=== PATIENT | male | born 1950 | race Caucasian/White ===

== ENCOUNTER 2019-10-11 10:15 | Outpatient (CLI) | payer MEDICARE, SELFPAY | END 2019-10-11 10:16 | disposition home or self-care (01) | PROVIDERS: PCP Internal Medicine; Visit Provider Internal Medicine Gastroenterology | DX: Z01.818 Encounter for other preprocedural examination (principal); Z11.59 Encounter for screening for other viral diseases | CPT/HCPCS: 87635; U0003 ==

== ENCOUNTER 2019-10-14 02:01 | Day surgery (SDC) | payer MEDICARE, SELFPAY ==
[2019-10-11 12:51] VITALS: BMI 28.8
[2019-10-14 07:56] VITALS: BP 110/72; PULSE 58; RESP 18; TEMP 36.7; O2SAT 98
[2019-10-14] MEDS: LACTATED RINGERS 1,000 ML 150 ML IV CONT (08:16)
--- NOTE | 2019-10-14 08:20 | P.PNAN_ITS ---
Anes - Initial Pre Proc Eval Procedure: Operation Date: 10/14/19 10:00 Proposed Procedures p Screening Colonoscopy - Favian Pedraza DO Date/Time: 10/14/19 08:20 Surgeon: Favian Pedraza DO Pre Op Diagnosis: Neoplasm Screening Patient Data Age: 69 Gender: M Height: 1.96 m Weight: 108 kg Last Vital Signs Temp 36.7 C 10/14/19 07:56 Pulse 58 L 10/14/19 07:56 Resp 18 10/14/19 07:56 BP 110/72 10/14/19 07:56 Pulse Ox 98 10/14/19 07:56 Allergies Allergy/AdvReac Type Severity Reaction Status Date / Time No Known Allergies Allergy Unknown Verified 10/14/19 07:56 Home Medications Medication Instructions Recorded Confirmed Type aspirin 325 mg PO DAILY 10/11/19 10/11/19 History brimonidine-timolol [Combigan] 1 drp OPHTHALMIC (EYE) DAILY 10/11/19 10/11/19 History citalopram 40 mg PO DAILY 10/11/19 10/11/19 History ketorolac 1 drp OPHTHALMIC (EYE) DAILY 10/11/19 10/11/19 History simvastatin 40 mg PO DAILY 10/11/19 10/11/19 History Patient hx anesthesia problems: none Family hx anesthesia problems: none [facility] Past Medical History Medical History (Updated 10/14/19 @ 08:15 by Joshua Sanford DO) Anxiety BPH (benign prostatic hyperplasia) History of retinal detachment HERON (obstructive sleep apnea) Anes - Eval Final PreProcedure Day of Procedure 10/14/19 08:20 Patient weight: overweight Heart: regular rate and rhythm Lungs: clear to auscultation and normal air movement Airway: Mallampati scale class II Neurological: alert and oriented Last oral intake: >/= 8 hours ASA classification: III Emergent: no Anesthetic plan: proceed Anesthesia type and monitoring: general GIVS and standard monitoring Informed Consent: The patient's anesthetic plan and its attendant risks and benefits were discussed with the patient/family/POA. Questions were solicited and answers provided to the satisfaction of the patient/family/POA.
--- NOTE | 2019-10-14 08:46 | PM.IMHP ---
H&P: HPI History of Present Illness Chief complaint: Neoplasm Screening Narrative: Mj Up is a 69 year old male That is here for colonoscopy. Impression: Screening and surveillance colonoscopy. Patient's history adenomatous colon polyps. Per past medical history. Recommendation: Colonoscopy. History: this very pleasant gentleman has a history of adenomatous colon polyps. He is here for screening and surveillance. GI review systems unremarkable. General: very pleasant patient in no acute distress. HEENT: Head was normocephalic sclerae is clear mouth without masses neck was supple. Heart: Rate rhythm regular without S3 or S4. Lungs: CTA. Abdomen: Soft with no guarding or rigidity. Bowel sounds were active. Neurologic: Cranial nerves 2 through 12 intact. No focal defects. No clonus. Musculoskeletal system: Revealed no joint tenderness or swelling no muscle atrophy. Extremities: Reveal no significant edema. Skin: Warm and dry with normal turgor. Mental status: intact. Patient is alert and oriented. Review of Systems Review of Systems: All systems reviewed & are unremarkable except as noted in HPI and below PMFSH Past Medical History Medical History (Updated 10/14/19 @ 08:46 by Favian Pedraza DO) Adenomatous colon polyp Anxiety BPH (benign prostatic hyperplasia) History of retinal detachment HLD (hyperlipidemia) HERON (obstructive sleep apnea) Surgical History Surgical History (Updated 10/14/19 @ 08:46 by Favian Pedraza DO) H/O colonoscopy S/P total knee arthroplasty Bilateral Meds Home Medications and Allergies Home Medications Medication Instructions Recorded Confirmed Type aspirin 325 mg PO DAILY 10/11/19 10/11/19 History brimonidine-timolol [Combigan] 1 drp OPHTHALMIC (EYE) DAILY 10/11/19 10/11/19 History citalopram 40 mg PO DAILY 10/11/19 10/11/19 History ketorolac 1 drp OPHTHALMIC (EYE) DAILY 10/11/19 10/11/19 History simvastatin 40 mg PO DAILY 10/11/19 10/11/19 History Allergies Allergy/AdvReac Type Severity Reaction Status Date / Time No Known Allergies Allergy Unknown Verified 10/14/19 07:56 Vital Signs Vital Signs - 24 hr 10/14/19 07:56 Temperature 36.7 C Pulse Rate 58 L Respiratory Rate 18 Blood Pressure 110/72 Pulse Oximetry 98
[2019-10-14 09:25] VITALS: BP 100/67; PULSE 55; RESP 19; O2SAT 98
[2019-10-14 09:35] VITALS: BP 115/78; PULSE 65; RESP 21; O2SAT 97
[2019-10-14 09:45] VITALS: BP 124/81; PULSE 59; RESP 18; O2SAT 100
== END 2019-10-14 10:00 | disposition home or self-care (01) ==
PROVIDERS: PCP Internal Medicine; Visit Provider Internal Medicine Gastroenterology
PROC: 0DJD8ZZ Inspection of Lower Intestinal Tract, Via Natural or Artificial Opening Endoscopic (ICD-10-PCS; CPT 45378; principal; 2019-10-14 10:00)
DX: Z12.11 Encounter for screening for malignant neoplasm of colon (principal); D12.4 Benign neoplasm of descending colon; D12.2 Benign neoplasm of ascending colon; D12.5 Benign neoplasm of sigmoid colon; K57.30 Diverticulosis of large intestine without perforation or abscess without bleeding; K64.8 Other hemorrhoids; G47.33 Obstructive sleep apnea (adult) (pediatric); N40.0 Benign prostatic hyperplasia without lower urinary tract symptoms; F41.9 Anxiety disorder, unspecified; Z79.82 Long term (current) use of aspirin
CPT/HCPCS: 45385; 87635; 88305; C9803; J2704; J7120; U0003

== ENCOUNTER 2019-12-15 13:18 | Emergency (ER) | payer MEDICARE, SELFPAY ==
[2019-12-15 13:21] VITALS: BP 135/73; PULSE 64; RESP 18; TEMP 36.4; O2SAT 98
[2019-12-15] MEDS: TETANUS,DIPHTHERIA,AC PERTUSSIS ADULT (0.5 ML) BOOSTRIX IM (14:01)
--- NOTE | 2019-12-15 14:47 | ED.WOUNDLAC ---
HPI - Wound/Laceration General Chief Complaint: Wound/Laceration <LYNETTE Escalera Last Filed: 12/15/19 14:57> Stated Complaint: left hand laceration <LYNETTE Escalera Last Filed: 12/15/19 14:57> Time Seen by Provider: 12/15/19 13:28 <LYNETTE Escalera Last Filed: 12/15/19 14:57> Source: patient <LYNETTE Escalera Last Filed: 12/15/19 14:57> Mode of arrival: ambulatory <LYNETTE Escalera Last Filed: 12/15/19 14:57> Limitations: no limitations <LYNETTE Escalera Filed: 12/15/19 14:57> History of Present Illness HPI narrative: Patient is a 69-year-old male who presents to emergency department for evaluation of laceration of the left hand patient was using a straight edge cutting an object when he accidentally cut his hand patient on arrival to emergency department resting comfortably in the room unsure as to tetanus status denies other complaints or concerns denies radicular symptoms or paresthesias <LYNETTE Escalera Last Filed: 12/15/19 14:57> Related Data Home Medications: Home Medications Medication Instructions Recorded Confirmed aspirin 325 mg PO DAILY 10/11/19 10/11/19 brimonidine-timolol [Combigan] 1 drp OPHTHALMIC (EYE) DAILY 10/11/19 10/11/19 citalopram 40 mg PO DAILY 10/11/19 10/11/19 ketorolac 1 drp OPHTHALMIC (EYE) DAILY 10/11/19 10/11/19 simvastatin 40 mg PO DAILY 10/11/19 10/11/19 <LYNETTE Escalera Last Filed: 12/15/19 14:57> Allergies/Adverse Reactions: Allergies Allergy/AdvReac Type Severity Reaction Status Date / Time No Known Allergies Allergy Unknown Verified 12/15/19 13:21 <LYNETTE Escalera Last Filed: 12/15/19 14:57> Review of Systems Review of Systems: All systems reviewed & are unremarkable except as noted in HPI and below <LYNETTE Escalera Last Filed: 12/15/19 14:57> PMFSH Past Medical History Medical History: Medical History Adenomatous colon polyp Anxiety BPH (benign prostatic hyperplasia) History of retinal detachment HLD (hyperlipidemia) HERON (obstructive sleep apnea) <Brady Galindo PA-C - Last Filed: 12/15/19 14:57> Surgical History Surgical History: Surgical History H/O colonoscopy S/P total knee arthroplasty Bilateral <Brady Galindo PA-C - Last Filed: 12/15/19 14:57> Social History Social History: Social History Gender identity (if verbalized by the patient): Male <Brady Galindo PA-C - Last Filed: 12/15/19 14:57> Exam Narrative: Exam Narrative: GENERAL: Well-appearing, well-nourished, and in no acute distress. HEAD: Normocephalic, atraumatic. EYES: PERRLA and EOMI. ENT: Nares clear, no rhinorrhea or epistaxis. Mucous membranes moist. EXTREMITIES: Normal range of motion. No edema. SKIN: Warm, dry, no rash. 2-1/2 cm linear superficial flap laceration of the left hand between the first and second digits involving the dorsal surface of the hand NEURO: No focal deficits. Alert and oriented x3. Neurovascularly intact. Capillary refill less than 2 seconds PSYCH: Normal mood and affect. <Brady Galindo PA-C - Last Filed: 12/15/19 14:57> Course PRINCIPAL CLOUD ARCHITECT/PA Physician Supervision Patient had closure of the wound in the emergency department <Brady Galindo PA-C - Last Filed: 12/15/19 14:57> Vital Signs Vital signs: Vital Signs Temperature 36.4 C L 12/15/19 13:21 Pulse Rate 64 12/15/19 13:21 Respiratory Rate 18 12/15/19 13:21 Blood Pressure 135/73 12/15/19 13:21 Pulse Oximetry 98 12/15/19 13:21 Temperature 36.4 C L 12/15/19 13:21 Pulse Rate 64 12/15/19 13:21 Respiratory Rate 18 12/15/19 13:21 Blood Pressure 135/73 12/15/19 13:21 Pulse Oximetry 98 12/15/19 13:21 <Brady Galindo PA-C - [place]
== END 2019-12-15 15:03 | disposition home or self-care (01) ==
PROVIDERS: Emergency Provider Emergency Medicine; PCP Internal Medicine
DX: S61.412A Laceration without foreign body of left hand, initial encounter (principal); W26.8XXA Contact with other sharp object(s), not elsewhere classified, initial encounter; F41.9 Anxiety disorder, unspecified; G47.30 Sleep apnea, unspecified
CPT/HCPCS: 12001; 90471; 90715; 99282